=== PATIENT | male | born 1965 | race Caucasian/White ===

== ENCOUNTER 2018-06-26 07:00 | Emergency (ER) | payer BC ==
[2018-06-26 07:19] VITALS: BP 150/96
[2018-06-26] MEDS ORDERED: NACL 0.9% 1000 ML 1,000 ML IV ONE (07:19)
[2018-06-26] MEDS ORDERED: TORADOL IV ONE (07:24)
--- NOTE | 2018-06-26 07:27 | Emergency Department Report ---
<LIONKVNG - Last Filed: 06/26/18 09:20> ED General Adult HPI - General Chief complaint: Abdominal Pain Stated complaint: STOMACH PAIN - History of Present Illness Initial comments: Patient is a 52-year-old male who is here planning of some right flank pain. Patient states that pain started suddenly last night after eating some fried fish. Patient has several episodes of nausea vomiting. Patient states pain was 8 out of 10 in severity and was in the right flank with some radiation to the mid abdomen. Patient denies any hematuria or penile discharge fevers or chills. Patient states his past surgical history he has his appendix removed but still has his gallbladder. -: Sudden Severity scale (0 -10): 8 Associated Symptoms: nausea/vomiting. denies: confusion, chest pain, cough, diaphoresis, loss of appetite, malaise, rash, seizure, shortness of breath, syncope - Related Data Previous Rx's Medication Instructions Recorded Last Taken Type Ciprofloxacin HCl [Cipro] 500 mg PO BID #14 tablet 06/26/18 Unknown Rx HYDROcodone/APAP 5-325 [[place] 1 each PO Q6HR PRN #15 tablet 06/26/18 Unknown Rx 5/325] Ibuprofen [Motrin] 800 mg PO Q8HR PRN #20 tablet 06/26/18 Unknown Rx Ondansetron [Zofran Odt] 4 mg PO Q8HR PRN #10 tab.rapdis 06/26/18 Unknown Rx Tamsulosin HCl [Flomax] 0.4 mg PO QHS #7 cap.er.24h 06/26/18 Unknown Rx Allergies Allergy/AdvReac Type Severity Reaction Status Date / Time No Known Allergies Allergy Unverified 06/26/18 07:19 ED Review of Systems ROS: Stated complaint: STOMACH PAIN Other details as noted in HPI Comment: All other systems reviewed and negative ED Past Medical Hx - Medications Home Medications: Home Medications Medication Instructions Recorded Confirmed Last Taken Type Ciprofloxacin HCl [Cipro] 500 mg PO BID #14 tablet 06/26/18 Unknown Rx HYDROcodone/APAP 5-325 [[place] 1 each PO Q6HR PRN #15 tablet 06/26/18 Unknown Rx 5/325] Ibuprofen [Motrin] 800 mg PO Q8HR PRN #20 tablet 06/26/18 Unknown Rx Ondansetron [Zofran Odt] 4 mg PO Q8HR PRN #10 tab.rapdis 06/26/18 Unknown Rx Tamsulosin HCl [Flomax] 0.4 mg PO QHS #7 cap.er.24h 06/26/18 Unknown Rx ED Physical Exam - General General appearance: alert, in no apparent distress - Head Head exam: Present: atraumatic, normocephalic - Eye Eye exam: Present: normal appearance - ENT ENT exam: Present: mucous membranes moist - Neck Neck exam: Present: normal inspection - Respiratory Respiratory exam: Present: normal lung sounds bilaterally. Absent: respiratory distress, wheezes, rales, rhonchi - Cardiovascular Cardiovascular Exam: Present: regular rate, normal rhythm. Absent: systolic murmur, diastolic murmur, rubs, gallop - GI/Abdominal GI/Abdominal exam: Present: soft, normal bowel sounds. Absent: distended, tenderness, guarding, rebound - Rectal Rectal exam: Present: deferred - Extremities Exam Extremities exam: Present: normal inspection - Back Exam Back exam: Present: normal inspection, CVA tenderness (R) (mild) - Neurological Exam Neurological exam: Present: alert, oriented X3 - Psychiatric Psychiatric exam: Present: normal affect, normal mood - Skin Skin exam: Present: warm, dry, intact, normal color. Absent: rash ED Course Vital Signs 06/26/18 06/26/18 07:16 09:30 Temperature 98.6 F Pulse Rate 72 Respiratory 18 17 Rate Blood Pressure 150/96 O2 Sat by Pulse 98 Oximetry ED Medical Decision Making - Lab Data Result diagrams: 06/26/18 07:20 06/26/18 07:20 Lab Results 06/26/18 06/26/18 06/26/18 Range/Units 07:20 07:20 07:20 WBC 11.7 H (4.5-11.0) K/mm3 RBC 4.71 (3.65-5.03) M/mm3 Hgb 13.9 (11.8-15.2) gm/dl Hct 42.8 (35.5-45.6) % MCV 91 (84-94) fl MCH 30 (28-32) pg MCHC 33 (32-34) % RDW 13.7 (13.2-15.2) % Plt Count 219 (140-440) K/mm3 Lymph % (Auto) 13.4 (13.4-35.0) % [place] % (Auto) 5.2 (0.0-7.3) % Eos % (Auto) 0.2 (0.0-4.3) % Baso % (Auto) 0.8 (0.0-1.8) % Lymph # 1.6 (1.2-5.4) K/mm3 [place] # 0.6 (0.0-0.8) K/mm3 Eos # 0.0 (0.0-0.4) K/mm3 Baso # 0.1 (0.0-0.1) K/mm3 Seg Neutrophils % 80.4 H (40.0-70.0) % Seg Neutrophils # 9.4 H (1.8-7.7) K/mm3 Sodium 140 (137-145) mmol/L Potassium 4.1 (3.6-5.0) mmol/L Chloride 103.8 (98-107) mmol/L Carbon Dioxide 24 (22-30) mmol/L Anion Gap 16 mmol/L BUN 20 (9-20) mg/dL Creatinine 1.1 (0.8-1.5) mg/dL Estimated GFR > 60 ml/min BUN/Creatinine Ratio 18 % Glucose 135 H (75-100) mg/dL Calcium 8.7 (8.4-10.2) mg/dL Total Bilirubin 0.50 (0.1-1.2) mg/dL AST 53 H (5-40) units/L ALT 51 (7-56) units/L Alkaline Phosphatase 103 (35-129) units/L Total Protein 6.9 (6.3-8.2) g/dL Albumin 4.2 (3.9-5) g/dL Albumin/Globulin Ratio 1.6 % Lipase 46 (13-60) units/L - Radiology Data Ordering Physician: SHARON BRICENO MD Date of Service: 06/26/18 Procedure(s): CT abdomen pelvis con Accession Number(s): [id number] cc: SHARON BRICENO MD CT ABDOMEN PELVIS WITHOUT CONTRAST: HISTORY: Right lower quadrant pain, back pain. COMPARISON: none. TECHNIQUE: Helical CT in 1.25mm intervals without IV contrast. Sagittal and coronal reconstructions. FINDINGS: Lung bases: Normal. Liver: Mild fatty infiltration is noted throughout the liver. No enlargement, surface nodularity or obvious mass. Biliary system: Normal. Pancreas: Normal. Spleen: Normal. Kidneys/ureters/bladder: A 3.7 mm calculus is identified in the distal right ureter. There is moderate up stream right hydronephrosis and right perinephric stranding. No additional renal stones. The left kidney and collecting system are unremarkable. Normal bladder and prostate gland. Adrenal glands: Normal. Aorta: Normal. Intestines: Normal. Appendix: The appendix is not confidently identified, correlate with surgical history. Pelvic viscera: Normal. Ascites: None. Adenopathy: None. Musculoskeletal: Minimal lumbar spondylosis. IMPRESSION: 3.7 mm calculus in the distal right ureter, moderate right hydronephrosis. Assumed appendectomy. Mild fatty infiltration of the liver. Transcribed By: TTR Dictated By: ANDRE FISHER JR, MD Electronically Authenticated By: ANDRE FISHER JR, MD Signed Date/Time: 06/26/18 0904 - Medical Decision Making Patient is a 52-year-old male who is presenting with right sided abdominal and flank pain. Patient received morphine and Zofran is feeling somewhat improved. Patient states pain is now down to a [address] shows that the patient does have an obstructive uropathy that is in the sciatic range that is passable. Patient be discharged home with meds for symptomatic relief. Critical care attestation.: If time is entered above; I have spent that time in minutes in the direct care of this critically ill patient, excluding procedure time. ED Disposition Clinical Impression: Hydronephrosis Qualifiers: Hydronephrosis type: with ureteral calculous obstruction Qualified Code(s): N13.2 - Hydronephrosis with renal and ureteral calculous obstruction Disposition: DC-01 TO HOME OR SELFCARE Is pt being admited?: No Does the pt Need Aspirin: No Condition: Stable Instructions: Kidney Stones (ED), How to Strain Your Urine (ED) Prescriptions: Ciprofloxacin HCl [Cipro] 500 mg PO BID #14 tablet HYDROcodone/APAP 5-325 [[place] 5/325] 1 each PO Q6HR PRN #15 tablet PRN Reason: Pain Ibuprofen [Motrin] 800 mg PO Q8HR PRN #20 tablet PRN Reason: Pain Ondansetron [Zofran Odt] 4 mg PO Q8HR PRN #10 tab.rapdis PRN Reason: Nausea And Vomiting Tamsulosin HCl [Flomax] 0.4 mg PO QHS #7 cap.er.24h Referrals: PRIMARY CARE, [Primary Care Provider] - 3-5 Days YAMILKA LAY MD [Staff Physician] - as needed Time of Disposition: 09:27 <SHARON BRICENO - Last Filed: 06/26/18 15:20> ED General Adult HPI - General Source: patient Mode of arrival: Ambulatory Limitations: No Limitations ED Past Medical Hx - Past Medical History Previous Medical History?: No - Surgical History Past Surgical History?: Yes Hx Appendectomy: Yes - Social History Smoking Status: Never Smoker ED Physical Exam - General Limitations: No Limitations ED Medical Decision Making - Lab Data Result diagrams: 06/26/18 07:20 06/26/18 07:20 Blank Doc - Documentation Documentation: Note: This patient was seen by Dr. Lion. I ordered the initial screening testing.
[2018-06-26] MEDS ORDERED: MORPHINE ONE (07:33)
[2018-06-26] MEDS ORDERED: MORPHINE IV ONE (07:45)
[2018-06-26 07:54] LABS: Basophils # (Auto) 0.1 K/mm3 (0.0-0.1); Basophils % (Auto) 0.8 % (0.0-1.8); Eosinophils % (Auto) 0.2 % (0.0-4.3); Hematocrit 42.8 % (35.5-45.6); Hemoglobin 13.9 gm/dl (11.8-15.2); Lymphocytes # (Auto) 1.6 K/mm3 (1.2-5.4); Lymphocytes % (Auto) 13.4 % (13.4-35.0); Mean Corpuscular HGB Conc 33 % (32-34); Mean Corpuscular Hemoglobin 30 pg (28-32); Mean Corpuscular Volume 91 fl (84-94); Monocytes # (Auto) 0.6 K/mm3 (0.0-0.8); Monocytes % (Auto) 5.2 % (0.0-7.3); Platelet Count 219 K/mm3 (140-440); Red Blood Count 4.71 M/mm3 (3.65-5.03); Red Cell Distribution Width 13.7 % (13.2-15.2)
[2018-06-26 08:07] LABS: Alanine Aminotransferase 51 units/L (7-56); Albumin 4.2 g/dL (3.9-5); BUN/Creatinine Ratio 18; Blood Urea Nitrogen 20 mg/dL (9-20); Calcium 8.7 mg/dL (8.4-10.2); Hemolysis Index 11
--- NOTE | 2018-06-26 09:05 | Cat Scan Report ---
CT ABDOMEN PELVIS WITHOUT CONTRAST: HISTORY: Right lower quadrant pain, back pain. COMPARISON: none. TECHNIQUE: Helical CT in 1.25mm intervals without IV contrast. Sagittal and coronal reconstructions. FINDINGS: Lung bases: Normal. Liver: Mild fatty infiltration is noted throughout the liver. No enlargement, surface nodularity or obvious mass. Biliary system: Normal. Pancreas: Normal. Spleen: Normal. Kidneys/ureters/bladder: A 3.7 mm calculus is identified in the distal right ureter. There is moderate up stream right hydronephrosis and right perinephric stranding. No additional renal stones. The left kidney and collecting system are unremarkable. Normal bladder and prostate gland. Adrenal glands: Normal. Aorta: Normal. Intestines: Normal. Appendix: The appendix is not confidently identified, correlate with surgical history. Pelvic viscera: Normal. Ascites: None. Adenopathy: None. Musculoskeletal: Minimal lumbar spondylosis. IMPRESSION: 3.7 mm calculus in the distal right ureter, moderate right hydronephrosis. Assumed appendectomy. Mild fatty infiltration of the liver.
== END 2018-06-26 09:35 | disposition home or self-care (01) ==
LOC: ED 07:00
DX: N13.2 Hydronephrosis with renal and ureteral calculous obstruction (principal)
CPT/HCPCS: 36415; 74176; 80053; 83690; 85025; 96374; 96375; 99284; J1885; J2270; J7030